=== PATIENT | male | born 1940 | race Caucasian/White ===

== ENCOUNTER → 2021-03-02 | Outpatient (CLI) | payer MEDICARE ==
--- NOTE | 2021-03-02 15:11 | REP ---
INDICATION: CERVICALGIA OF OCCIPITOATLANTO-AXIAL REGION. COMPARISON: None TECHNIQUE: AP, lateral, swimmer's view, and open-mouth view FINDINGS: There is advanced disc space narrowing seen C4-5, C5-6, C6-7. Heavy anterior osteophytic ridging is seen at those levels. C7-T1 is poorly visualized. Heavy degenerative facet and uncovertebral joint changes are present at every level bilaterally. These are seen in limited fashion on this limited exam. The dense is unremarkable. IMPRESSION: Limited exam, as described above, showing advanced degenerative changes. Since the patient is not a candidate for an MRI, follow-up with a CT scan is suggested. If this was examination was performed to rule out a fracture than an emergent CT scan is recommended since this examination cannot rule out a fracture. <Electronically signed by Tj Arenas > 03/02/21 [id number]
== END ==
LOC: M WUC 14:33
DX: M54.2 Cervicalgia (principal)